=== PATIENT | female | born 1935 | race Native Hawaiian/Other Pacific Islander ===

== ENCOUNTER 2016-09-04 14:37 | Outpatient (CLI) | payer OTHER ==
[~2016-09-04] VITALS: Ht 152.4 cm; Wt 63.5 kg
[~2016-09-04 14:37] MED LIST: B12-ACTIVE1 MG PO; CALAN SR120 MG PO; CALCI20 OR; COUMADIN5 MG PO; CUPRIMINE250 MG OR; CUPRIMINE250 MG PO; D32000 UNIT PO; ELIQUIS2.5 MG PO; FOSAMAX70 MG PO; IRON325 MG PO; LEVOTHROID100 MCG PO; MINOCYCLINE100 M1 PO; RYBIX ODT50 MG PO; SYNTHROID50 MCG OR; TRAM50TA PO; UNITH DIRECT50 MCG OR; VERA120T22 PO; VITAMIN C1000 MG PO; VITAMIN D1000 UNI1 PO; VITAMIN D400 UNI1 OR; WARFARIN5 MG PO; [UNRECOGNIZED DRUG - CODE] PO; [UNRECOGNIZED DRUG - OTHER] PO
[2016-09-04 15:55] VITALS: BP 143/55; TEMP 98.6
[2016-09-05] MEDS ORDERED: LEVO0.0723 PO (10:04)
== END 2016-09-04 15:50 | disposition home or self-care (01) ==
LOC: INF 14:37
DX: M81.0 Age-related osteoporosis without current pathological fracture (principal)
CPT/HCPCS: 36415; 82310; 96372; J0897

== ENCOUNTER 2016-09-05 00:49 | Inpatient (IN) | payer OTHER ==
[~2016-09-05] VITALS: Ht 154.9 cm; Wt 65.9 kg
[2016-09-05] VITALS (8 sets, daily range): BP systolic 95–164; BP diastolic 40–66; TEMP 98.2–100.2; Ht 154.9 cm; Wt 65.9 kg
[2016-09-05 01:36] LABS: PLATELET COUNT 166 K/uL (152-353)
[2016-09-05 02:08] LABS: POTASSIUM 3.9 mmol/L (3.6-5.2)
[2016-09-05] MEDS ORDERED: LEVO0.0723 PO (10:04)
[2016-09-06] VITALS: BP 126/50; TEMP 98.5
[2016-09-06 04:00] VITALS: BP 124/38; TEMP 97.8
[2016-09-06 05:13] LABS: PLATELET COUNT 129 K/uL (152-353)
[2016-09-06 05:32] LABS: POTASSIUM 3.9 mmol/L (3.6-5.2)
[2016-09-06 07:56] VITALS: BP 107/47; TEMP 97.9
[2016-09-06 11:59] VITALS: BP 141/54; TEMP 97.8
[2016-09-06 16:00] VITALS: BP 129/50; TEMP 98.2
[2016-09-06 20:00] VITALS: BP 142/55; TEMP 98.4
[2016-09-07] VITALS: BP 122/50; TEMP 98.3
[2016-09-07 04:00] VITALS: BP 128/49; TEMP 97.8
[2016-09-07 08:00] VITALS: BP 150/54; TEMP 98
[2016-09-07 11:11] LABS: PLATELET COUNT 141 K/uL (152-353)
[2016-09-07 12:00] VITALS: BP 121/49; TEMP 97.8
[2016-09-07 16:00] VITALS: BP 136/51; TEMP 97.6
--- NOTE | 2016-09-07 17:22 | NUR ---
PT INSTRUCTED ON DC INSTRUCTIONS AND COMING FOR OUTPT INFUSIONS FOR 4 DAYS. PT TO RETURN DAILY AT 1400. IV DC'D WITH CANNULA INTACT AND SITE CARE PROVIDED. INSTRUCTED PT TO CALL FOR FOLLOW UP APPT WITH DR TAVERAS IN 5 DAYS. INSTRUCTED PT TO WEAR IZABELA HOSE ORDERED. PT VERBALIZED UNDERSTANDING. PT LEFT VIA WC WITH FAMILY AT THIS TIME.
== END 2016-09-07 17:20 | disposition home or self-care (01) | DRG 603 ==
LOC: ED 00:49 → MED/SURG 06:15
PROVIDERS: Family Medicine
DX: L03.116 Cellulitis of left lower limb (principal); C92.10 Chronic myeloid leukemia, BCR/ABL-positive, not having achieved remission; L03.115 Cellulitis of right lower limb; Z79.01 Long term (current) use of anticoagulants; I10 Essential (primary) hypertension; I73.89 Other specified peripheral vascular diseases; M81.0 Age-related osteoporosis without current pathological fracture
CPT/HCPCS: 36415; 80053; 81000; 82310; 83605; 83735; 84100; 85027; 85610; 87040; 96361; 96365; 96372; 99284; J0897; J1885; J2405; J3490; Q9963

== ENCOUNTER 2016-09-08 14:03 | Outpatient (CLI) | payer OTHER ==
[~2016-09-08 14:03] MED LIST changes: +LEVO0.0723 PO
== END 2016-09-08 16:15 | disposition home or self-care (01) ==
LOC: INF 14:03
DX: L03.116 Cellulitis of left lower limb (principal)
CPT/HCPCS: 96365; J1335

== ENCOUNTER 2016-09-09 13:50 | Outpatient (CLI) | payer OTHER | END 2016-09-09 16:00 | disposition home or self-care (01) | LOC: INF 13:50 | DX: L03.116 Cellulitis of left lower limb (principal) | CPT/HCPCS: 96365; J1335 ==

== ENCOUNTER 2016-09-11 17:24 | Outpatient (CLI) | payer OTHER | END 2016-09-11 19:13 | disposition home or self-care (01) | LOC: LAB 17:24 | DX: R19.7 Diarrhea, unspecified (principal) | CPT/HCPCS: 87045; 87101; 87205; 87252; 87328; 87329; 87493; 87798; 87899 ==

== ENCOUNTER 2016-09-25 22:30 | Outpatient (CLI) | payer OTHER ==
[2016-09-25 23:32] LABS: PLATELET COUNT 217 K/uL (152-353)
== END 2016-09-25 23:59 ==
LOC: INF 22:30
PROVIDERS: Family Medicine
DX: L03.116 Cellulitis of left lower limb (principal)
CPT/HCPCS: 36415; 85027; 87040; 96365; J1335

== ENCOUNTER 2016-09-26 20:26 | Outpatient (CLI) | payer OTHER | END 2016-09-26 21:55 | disposition home or self-care (01) | LOC: INF 20:26 | DX: L03.116 Cellulitis of left lower limb (principal) | CPT/HCPCS: 96365; J1335 ==

== ENCOUNTER 2016-09-27 14:02 | Outpatient (CLI) | payer OTHER ==
[~2016-09-27] VITALS: Ht 154.9 cm; Wt 63.5 kg
[2016-09-27 14:15] VITALS: BP 121/55; TEMP 98
[2016-09-27 15:10] VITALS: BP 137/61; TEMP 98.2
== END 2016-09-27 20:04 | disposition home or self-care (01) ==
LOC: INF 14:02
DX: L03.116 Cellulitis of left lower limb (principal)
CPT/HCPCS: 96365; J1335

== ENCOUNTER 2016-09-28 14:08 | Outpatient (CLI) | payer OTHER ==
[~2016-09-28] VITALS: Ht 154.9 cm; Wt 63.5 kg
== END 2016-09-28 16:30 | disposition home or self-care (01) ==
LOC: INF 14:08
DX: L03.116 Cellulitis of left lower limb (principal)
CPT/HCPCS: 96365; J1335

== ENCOUNTER 2016-09-29 14:07 | Outpatient (CLI) | payer OTHER ==
[2016-09-29 16:18] LABS: PLATELET COUNT 210 K/uL (152-353)
[2016-09-29 16:30] LABS: POTASSIUM 3.9 mmol/L (3.6-5.2)
== END 2016-09-29 19:06 | disposition home or self-care (01) ==
LOC: INF 14:07
PROVIDERS: Family Medicine
DX: L03.116 Cellulitis of left lower limb (principal); R82.99 Other abnormal findings in urine
CPT/HCPCS: 80053; 81000; 85027; 87086; 87088; 96365; J1335

== ENCOUNTER 2016-09-30 14:39 | Outpatient (CLI) | payer OTHER | END 2016-09-30 19:00 | disposition home or self-care (01) | LOC: INF 14:39 | DX: L03.116 Cellulitis of left lower limb (principal) | CPT/HCPCS: 96365; 96367; J1335; J3411; J3475; J3490 ==

== ENCOUNTER 2016-10-01 10:53 | Outpatient (CLI) | payer OTHER ==
[~2016-10-01] VITALS: Ht 154.9 cm; Wt 63.5 kg
== END 2016-10-01 11:00 | disposition home or self-care (01) ==
LOC: INF 10:53
DX: L03.116 Cellulitis of left lower limb (principal)
CPT/HCPCS: 96365; J1335

== ENCOUNTER 2016-10-02 14:15 | Outpatient (CLI) | payer OTHER ==
[~2016-10-02] VITALS: Ht 154.9 cm; Wt 63.5 kg
== END 2016-10-02 15:22 | disposition home or self-care (01) ==
LOC: INF 14:15
DX: L03.116 Cellulitis of left lower limb (principal)
CPT/HCPCS: 96365; J1335

== ENCOUNTER 2016-10-03 14:26 | Outpatient (CLI) | payer OTHER | END 2016-10-03 15:25 | disposition home or self-care (01) | LOC: INF 14:26 | DX: L03.116 Cellulitis of left lower limb (principal) | CPT/HCPCS: 96365; J1335 ==

== ENCOUNTER 2016-10-04 14:06 | Outpatient (CLI) | payer OTHER | END 2016-10-04 22:00 | disposition home or self-care (01) | LOC: INF 14:06 | DX: L03.116 Cellulitis of left lower limb (principal) | CPT/HCPCS: 96365; J1335 ==

== ENCOUNTER 2016-10-05 14:11 | Outpatient (CLI) | payer OTHER | END 2016-10-05 19:09 | disposition home or self-care (01) | LOC: INF 14:11 | DX: L03.116 Cellulitis of left lower limb (principal) | CPT/HCPCS: 96365; J1335 ==

== ENCOUNTER 2016-10-11 21:19 | Emergency (ER) | payer OTHER ==
[~2016-10-11] VITALS: Ht 154.9 cm; Wt 66.2 kg
[2016-10-11 23:42] LABS: PLATELET COUNT 179 K/uL (152-353)
[2016-10-11 23:48] LABS: POTASSIUM 4.4 mmol/L (3.6-5.2)
[2016-10-12 02:11] VITALS: BP 138/88; TEMP 98.1
== END 2016-10-12 02:13 | disposition home or self-care (01) ==
LOC: ED 21:19
DX: R19.7 Diarrhea, unspecified (principal); C91.10 Chronic lymphocytic leukemia of B-cell type not having achieved remission
CPT/HCPCS: 36415; 80053; 85027; 96361; 96374; 99284; J2405

== ENCOUNTER 2016-10-12 15:04 | Inpatient (IN) | payer OTHER ==
[~2016-10-12] VITALS: Ht 157.5 cm; Wt 70.8 kg
[2016-10-12 16:00] VITALS: BP 142/63; TEMP 98.9
[2016-10-12 16:06] VITALS: BP 142/63; TEMP 98.9; BMI 25.8
[2016-10-12 17:21] LABS: PLATELET COUNT 197 K/uL (152-353)
[2016-10-12 17:35] LABS: PARTIAL THROMBOPLASTIN TIME 27.5 SECONDS (24.5-33.6)
[2016-10-12 20:10] VITALS: BP 125/48; TEMP 98.8
[2016-10-13] VITALS (7 sets, daily range): BP systolic 101–137; BP diastolic 46–91; TEMP 97.9–102; Ht 157.5 cm; Wt 70.8 kg
[2016-10-13 01:40] LABS: PLATELET COUNT 167 K/uL (152-353)
[2016-10-13 01:42] LABS: POTASSIUM 3.8 mmol/L (3.6-5.2)
[2016-10-13 01:55] LABS: PARTIAL THROMBOPLASTIN TIME 30.8 SECONDS (24.5-33.6)
[2016-10-14] VITALS (17 sets, daily range): BP systolic 95–126; BP diastolic 39–62; TEMP 98.7–100.2
[2016-10-14 06:23] LABS: POTASSIUM 3.5 mmol/L (3.6-5.2)
[2016-10-14 06:34] LABS: PLATELET COUNT 200 K/uL (152-353)
[2016-10-14 16:34] LABS: PLATELET COUNT 238 K/uL (152-353)
[2016-10-14 16:44] LABS: POTASSIUM 3.9 mmol/L (3.6-5.2)
[2016-10-15] VITALS (19 sets, daily range): BP systolic 15–129; BP diastolic 47–87; TEMP 97.5–98.9
[2016-10-15 06:20] LABS: PLATELET COUNT 266 K/uL (152-353)
[2016-10-15 06:28] LABS: POTASSIUM 4.4 mmol/L (3.6-5.2)
[2016-10-16] VITALS (23 sets, daily range): BP systolic 107–136; BP diastolic 47–91; TEMP 97.6–98
[2016-10-16 06:30] LABS: PLATELET COUNT 220 K/uL (152-353)
[2016-10-16 06:53] LABS: POTASSIUM 4.6 mmol/L (3.6-5.2)
[2016-10-17] VITALS (23 sets, daily range): BP systolic 100–187; BP diastolic 43–97; TEMP 97.7–98.1
[2016-10-17 06:20] LABS: PLATELET COUNT 235 K/uL (152-353)
[2016-10-17 06:31] LABS: POTASSIUM 5.4 mmol/L (3.6-5.2)
[2016-10-18] VITALS (20 sets, daily range): BP systolic 93–173; BP diastolic 45–96; TEMP 97–99.7
[2016-10-18 06:14] LABS: PLATELET COUNT 297 K/uL (152-353)
[2016-10-19] VITALS (21 sets, daily range): BP systolic 103–154; BP diastolic 52–72; TEMP 97.7–98.9
[2016-10-19 06:40] LABS: POTASSIUM 4.7 mmol/L (3.6-5.2)
[2016-10-19 07:29] LABS: PLATELET COUNT 287 K/uL (152-353)
[2016-10-20] VITALS (23 sets, daily range): BP systolic 101–160; BP diastolic 43–87; TEMP 98.4–99.3
[2016-10-20 07:27] LABS: POTASSIUM 4.2 mmol/L (3.6-5.2); SODIUM 131 mmol/L (136-145)
[2016-10-20 07:34] LABS: PLATELET COUNT 263 K/uL (152-353)
[2016-10-21] VITALS (13 sets, daily range): BP systolic 112–147; BP diastolic 55–88; TEMP 98.4–98.9
[2016-10-21 05:49] LABS: POTASSIUM 4.4 mmol/L (3.6-5.2); SODIUM 131 mmol/L (136-145)
[2016-10-21 06:20] LABS: PLATELET COUNT 336 K/uL (152-353)
== END 2016-10-21 16:40 | disposition short-term general hospital (02) | DRG 872 ==
LOC: MED/SURG 15:04 → ICU 15:04 → MED/SURG 10-14 11:30 → ICU 10-21 16:40
PROVIDERS: ADMIT Family Medicine
DX: A41.89 Other specified sepsis (principal); A04.7 Enterocolitis due to Clostridium difficile; N39.0 Urinary tract infection, site not specified; C91.10 Chronic lymphocytic leukemia of B-cell type not having achieved remission; R18.8 Other ascites; R07.89 Other chest pain; R06.02 Shortness of breath; E86.0 Dehydration; R00.0 Tachycardia, unspecified; R50.9 Fever, unspecified
CPT/HCPCS: 36415; 36591; 36600; 51702; 80053; 81000; 82550; 82784; 82805; 83605; 83615; 83735; 84100; 84484; 85007; 85027; 85610; 85730; 87015; 87040; 87045; 87086; 87088; 87324; 87328; 87329; 87449; 87493; 87899; 93005; 96360; 96361; 96367; 96372; J0610; J1450; J1650; J1940; J2405; J2930; J3370; J3411; J3475; J3490; J7040; P9047

== ENCOUNTER 2017-02-04 15:25 | Outpatient (CLI) | payer OTHER | END 2017-02-04 19:19 | disposition home or self-care (01) | LOC: RAD 15:25 | DX: M25.561 Pain in right knee (principal); M25.562 Pain in left knee; M25.551 Pain in right hip; M25.552 Pain in left hip ==

== ENCOUNTER 2017-03-12 11:11 | Outpatient (CLI) | payer OTHER ==
[~2017-03-12] VITALS: Ht 152.4 cm; Wt 61.2 kg
[2017-03-12 11:05] VITALS: BP 131/51; BP 137/69; TEMP 97.8; TEMP 98.3
== END 2017-03-12 12:05 | disposition home or self-care (01) ==
LOC: INF 11:11
DX: M81.0 Age-related osteoporosis without current pathological fracture (principal)
CPT/HCPCS: 36415; 82310; 96372; J0897

== ENCOUNTER 2017-03-27 19:45 | Emergency (ER) | payer OTHER ==
[~2017-03-27] VITALS: Ht 160 cm; Wt 60.3 kg
[2017-03-27 20:51] LABS: PLATELET COUNT 162 K/uL (152-353)
[2017-03-27 23:06] LABS: POTASSIUM 4.1 mmol/L (3.6-5.2)
[2017-03-28 01:35] VITALS: BP 113/77; TEMP 98.9
== END 2017-03-28 01:20 | disposition home or self-care (01) ==
LOC: ED 19:45
DX: L03.115 Cellulitis of right lower limb (principal); B96.89 Other specified bacterial agents as the cause of diseases classified elsewhere
CPT/HCPCS: 36415; 80048; 83605; 85027; 96365; 96366; 99284; J0690; J3370

== ENCOUNTER 2017-10-07 13:26 | Outpatient (CLI) | payer OTHER ==
[~2017-10-07] VITALS: Ht 152.4 cm; Wt 61.2 kg
== END 2017-10-07 19:51 | disposition home or self-care (01) ==
LOC: INF 13:26
DX: M81.0 Age-related osteoporosis without current pathological fracture (principal)
CPT/HCPCS: 36415; 82310; 96372; J0897

== ENCOUNTER 2018-05-27 15:22 | Outpatient (CLI) | payer OTHER ==
[~2018-05-27] VITALS: Ht 152.4 cm; Wt 64.5 kg
== END 2018-05-27 16:30 | disposition home or self-care (01) ==
LOC: INF 15:22
DX: M81.0 Age-related osteoporosis without current pathological fracture (principal)
CPT/HCPCS: 36415; 82310; 96372; J0897